=== PATIENT | female | born 1965 | race Caucasian/White ===

== ENCOUNTER → 2017-07-14 | Outpatient (CLI) | payer MEDICARE ==
--- NOTE | 2017-07-14 13:26 | XR ---
EXAMINATION TYPE: XR chest 2V DATE OF EXAM: 07/14/2017 COMPARISON: 12/22/2011 INDICATION: Cough TECHNIQUE: Frontal and lateral views of the chest are obtained. FINDINGS: The heart size is normal. The pulmonary vasculature is normal. The lungs are clear. IMPRESSION: 1. No acute pulmonary process.
== END | disposition home or self-care (01) ==
LOC: RADXRMAIN 12:03
PROVIDERS: ATTEND Family Medicine
DX: R05 Cough (principal); R06.02 Shortness of breath
CPT/HCPCS: 71046

== ENCOUNTER → 2017-08-02 | Outpatient (CLI) | payer MEDICARE ==
--- NOTE | 2017-08-02 11:22 | BD ---
EXAMINATION TYPE: MG DEXA axial skeleton. DATE OF EXAM: 08/02/2017 CLINICAL HISTORY: M81.0 OSTEOPOROSIS Height: 66.5 Weight: 177 FRAX RISK QUESTIONS: Alcohol (3 or more units per day): no Family History (Parent hip fracture): yes, mother Glucocorticoids (More than 3mos): no (Ex: prednisone, prednisolone, methylprednisolone, dexamethasone, and hydrocortisone). History of Fracture in Adulthood: great toe. foot & ankle about 2 years ago. Secondary Osteoporosis: 1. Type 1 Diabetes: no 2. Hyperthyroidism: no 3. Menopause before 45: ablasion about age 45 4. Malnutrition: no 5. Chronic liver disease: no Rheumatoid Arthritis: no Current Tobacco Use: no RISK FACTORS HISTORY OF: Family History of Osteoporosis: yes Active: yes Diet low in dairy products/other sources of calcium: several times a week Postmenopausal woman: yes Take estrogen and/or progesterone medications: no Lost more than 2 inches in height since high school: no Frequent falls: no Poor Health: no Hyperparathyroidism: no Adrenal Insufficiency: no MEDICATIONS: Prednisone or other steroids: no Thyroid Medications: yes Which medication: Synthroid How Long: over 5 years Osteoporosis Medications: no Additional Medications: clonidine EXAM MEASUREMENTS: Bone mineral densitometry was performed using the [employer] System. Bone mineral density as measured about the Lumbar spine is: ----- L1-L4(G/cm2): 1.269 T Score Values are as follows: ----- L2: 0.6 ----- L3: 1.2 ----- L4: 1.1 ----- L1-L4: 0.7 Bone mineral density BASELINE Bone mineral density about the R hip (g/cm2): 0.915 Bone mineral density about the L hip (g/cm2): 0.917 T Score values are as follows: -----R Neck: -0.9 -----L Neck: -0.9 -----R Total: 0.1 -----L Total: 0.0 Bone mineral density BASELINE IMPRESSION: No evidence for osteoporosis or osteopenia. NOTE: T-SCORE=SD OF THE YOUNG ADULT MEAN.
== END | disposition home or self-care (01) ==
LOC: RADBDWWP 09:28
PROVIDERS: ATTEND Family Medicine
DX: M81.0 Age-related osteoporosis without current pathological fracture (principal)
CPT/HCPCS: 77080

== ENCOUNTER → 2020-02-27 | Outpatient (CLI) | payer MEDICARE | END | disposition home or self-care (01) | LOC: LABWHC1 11:17 | PROVIDERS: ATTEND Family Medicine | DX: U07.1 COVID-19 (principal) | CPT/HCPCS: U0003; C9803 ==

== ENCOUNTER → 2020-10-31 | Outpatient (CLI) | payer MEDICARE | END | disposition home or self-care (01) | LOC: LABWHC1 17:03 | PROVIDERS: ATTEND Family Medicine | DX: Z20.822 Contact with and (suspected) exposure to COVID-19 (principal) | CPT/HCPCS: U0003; C9803; U0005 ==

== ENCOUNTER → 2021-09-08 | Outpatient (CLI) | payer MEDICARE ==
--- NOTE | 2021-09-08 15:38 | BD ---
EXAMINATION TYPE: Axial Bone Density DATE OF EXAM: 09/08/2021 COMPARISON: DEXA bone scan 2018 CLINICAL HISTORY: Postmenopausal female with known osteoporosis. Height: 5 FT 6 IN Weight: 161 FRAX RISK QUESTIONS: Alcohol (3 or more units per day): NO Family History (Parent hip fracture): YES Glucocorticoids (More than 3mos): NO (Ex: prednisone, prednisolone, methylprednisolone, dexamethasone, and hydrocortisone). History of Fracture in Adulthood: YES Secondary Osteoporosis: 1. Type 1 Diabetes: NO 2. Hyperthyroidism: DAISY'S 3. Menopause before 45: NO 4. Malnutrition: NO 5. Chronic liver disease: NO Rheumatoid Arthritis: NO Current Tobacco Use: NO RISK FACTORS HISTORY OF: Surgery to Spine/Hip(right/left)/Wrist (right/left): NO Family History of Osteoporosis: YES Active: YES Diet low in dairy products/other sources of calcium: NO Postmenopausal woman: YES Take estrogen and/or progesterone medications: NO Lost more than 2 inches in height since high school: NO Frequent falls: NO Poor Health: GOOD Hyperparathyroidism: NO Adrenal Insufficiency: NO MEDICATIONS: Thyroid Medications: YES Which medication: LEVOTHYROXINE How Long: APPROX. 10 YEARS Additional Medications: LEVOTHYROXINE, KEPRA, PROPANOLOL,ALLOPURINOL Additional History: EXAM MEASUREMENTS: Bone mineral densitometry was performed using the [employer] System. Bone mineral density as measured about the Lumbar spine is: ----- L1-L4(G/cm2): 1.198 T Score Values are as follows: ----- L2: 0.2 ----- L3: 0.3 ----- L4: 0.7 ----- L1-L4: 0.1 Bone mineral density has: DECREASED -5.6 % since study of: 2018 Bone mineral density about the R hip (g/cm2): 0.833 Bone mineral density about the L hip (g/cm2): 0.862 T Score values are as follows: -----R Neck: -1.5 -----L Neck: -1.3 -----R Total: -0.6 -----L Total: -0.5 Bone mineral density has: DECREASED -7.0 % since study of: 2018 IMPRESSION: Osteopenia (T Score between -2.5 and -1) is now present. There is slightly increased risk of fracture and the patient may be considered for treatment. Re-Screen 2-5 years. NOTE: T-SCORE=SD OF THE YOUNG ADULT MEAN.
--- NOTE | 2021-09-10 12:28 | MM ---
Reason for exam: screening (asymptomatic). Last mammogram was performed 8 years and 6 months ago. History: Patient is postmenopausal. Family history of breast cancer in maternal grandmother at age 80. US LT VAD Breast Biopsy of the left breast, September 03, 2011. Physical Findings: A clinical breast exam by your physician is recommended on an annual basis and results should be correlated with mammographic findings. MG 3D Screening Mammo W/Cad Bilateral CC and MLO view(s) were taken. Prior study comparison: March 23, 2013, bilateral digital screening mammo w/CAD. September 03, 2011, left breast digital mammogram. August 24, 2011, bilateral digital screening mammo w/CAD. There are scattered fibroglandular densities. Previous mammotome biopsy in the left breast. There is chronic nodularity in the right breast. No significant changes when compared with prior studies. ASSESSMENT: Benign, BI-RAD 2 RECOMMENDATION: Routine screening mammogram of both breasts in 1 year.
== END | disposition home or self-care (01) ==
LOC: RADMAMWWP 14:31
PROVIDERS: ATTEND Family Medicine
DX: Z12.31 Encounter for screening mammogram for malignant neoplasm of breast (principal); M85.89 Other specified disorders of bone density and structure, multiple sites; Z78.0 Asymptomatic menopausal state; Z80.3 Family history of malignant neoplasm of breast
CPT/HCPCS: 77063; 77067; 77080

== ENCOUNTER → 2022-02-09 | Outpatient (CLI) | payer OTHER ==
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
== END | disposition home or self-care (01) ==
LOC: RADCTMAIN 15:38
PROVIDERS: ATTEND Family Medicine
DX: K57.30 Diverticulosis of large intestine without perforation or abscess without bleeding (principal); K76.89 Other specified diseases of liver
CPT/HCPCS: 74150; Q9967

== ENCOUNTER → 2023-05-03 | Outpatient (CLI) | payer MEDICARE ==
--- NOTE | 2023-05-03 19:15 | CT ---
EXAMINATION TYPE: CT abdomen wo con CT DLP: 430.5 mGycm, Automated exposure control for dose reduction was used. DATE OF EXAM: 05/03/2023 6:20 PM COMPARISON: CT abdomen pelvis most recent from 02/09/2022 CLINICAL INDICATION:Female, 57 years old with history of Z80.0 FAMILY HISTORY OF MALIGNANT NEOPLASM; Upper-Mid abdominal pain x 3 months. Family history of pancreatic cancer (Mother). TECHNIQUE: Axial CT of the ;CT abdomen wo con;Sagittal and coronal reformats were created on a [employer] workstation. Contrast used: mL of , (none if empty) Oral contrast used: with Oral Contrast (none if empty) FINDINGS: LOWER CHEST: Unremarkable ABDOMEN LIVER: Scattered probable simple hepatic cysts. GALLBLADDER AND BILE DUCTS: Unremarkable. PANCREAS: Unremarkable. SPLEEN: Unremarkable. ADRENAL GLANDS: Unremarkable. KIDNEYS AND URETERS: No evidence of hydronephrosis or renal calculus. The ureters are unremarkable. STOMACH AND BOWEL: No evidence of bowel obstruction. The appendix is normal. Scattered colonic divert icula. Second portion duodenal diverticulum. PERITONEUM/RETROPERITONEUM: No evidence of pneumoperitoneum or free fluid. VASCULATURE: No evidence of aortic aneurysm. MUSCULOSKELETAL: No acute osseous abnormalities LYMPH NODES: No gross evidence for lymphadenopathy. SOFT TISSUE/ABDOMINAL WALL: No hernia is identified. IMPRESSION: 1. No evidence for acute abdominal process. 2. Pancreas and stomach appear within normal limits. 3. Colonic diverticula. 4. No obstructive uropathy or renal calculus. 5. Normal appendix.
== END | disposition home or self-care (01) ==
LOC: RADCTMAIN 17:34
PROVIDERS: ATTEND Family Medicine
DX: K57.30 Diverticulosis of large intestine without perforation or abscess without bleeding (principal); Z80.0 Family history of malignant neoplasm of digestive organs
CPT/HCPCS: 74150

== ENCOUNTER → 2024-04-24 | Outpatient (CLI) | payer MEDICARE ==
--- NOTE | 2024-04-24 11:16 | XR ---
EXAMINATION TYPE: XR chest 2V DATE OF EXAM: 04/24/2024 11:04 AM COMPARISON: Chest radiographs from 07/14/2017 TECHNIQUE: XR chest 2V Frontal and lateral views of the chest. CLINICAL INDICATION:Female, 58 years old with history of J01.90 Sinusitis J20.9Bronchitis; FINDINGS: Lungs/Pleura: There is no evidence of pleural effusion, focal consolidation, or pneumothorax. Pulmonary vascularity: Unremarkable. Heart/mediastinum: Cardiomediastinal silhouette is unremarkable. Musculoskeletal: No acute osseous pathology. IMPRESSION: No acute cardiopulmonary disease/process. [facility], , 04/24/2024 11:14 AM
== END | disposition home or self-care (01) ==
LOC: RADXRMAIN 10:48
PROVIDERS: ATTEND Family Medicine
CPT/HCPCS: 71046